=== PATIENT | male | born 1990 | race Caucasian/White ===

== ENCOUNTER 2018-10-12 05:20 | Emergency (ER) | payer OTHER ==
[~2018-10-12] VITALS: Ht 177.8 cm; Wt 95.2 kg
[2018-10-12] MEDS ORDERED: CLARITIN10 M2 PO (05:27)
[2018-10-12] MEDS ORDERED: FLOMAX0.4 MG PO (07:08)
[2018-10-12] MEDS ORDERED: PERCOCET 5-3251 EACH PO (07:08)
== END 2018-10-12 07:35 | disposition home or self-care (01) ==
LOC: ED 05:20
DX: N20.1 Calculus of ureter (principal); Z79.899 Other long term (current) drug therapy
CPT/HCPCS: 74176; 80053; 81001; 85025; 87088; 96374; 96375; 96376; 99284-25; J1170; J1885; J2405